=== PATIENT | male | born 1945 | race Hispanic/Latino ===

== ENCOUNTER 2019-05-06 17:49 | Emergency (ER) | payer MEDICARE ==
--- NOTE | 2019-05-06 18:34 | RAD ---
RIGHT WRIST THREE VIEWS: 05/06/19 INDICATION: Fall. COMPARISON: None. FINDINGS: There is a dorsally comminuted, dorsally angulated distal radius fracture. There is a small ulnar sty loid process fracture. No additional acute fracture is evident. There are Monckeberg calcifications w ithin the soft tissues. IMPRESSION: 1. Dorsally angulated distal radius fracture. 2. Ulnar styloid process fracture. POS: [facility]
== END 2019-05-06 19:43 | disposition home or self-care (01) ==
LOC: ERS 17:49
DX: S52.501A Unspecified fracture of the lower end of right radius, initial encounter for closed fracture (principal); S52.611A Displaced fracture of right ulna styloid process, initial encounter for closed fracture; W18.30XA Fall on same level, unspecified, initial encounter
CPT/HCPCS: 29125

== ENCOUNTER 2019-05-10 08:58 | Day surgery (SDC) | payer MEDICARE ==
[2019-05-10] MEDS ORDERED: Fentanyl 100 MCG/2 ML VIAL ONE (11:18)
[2019-05-10] MEDS ORDERED: Ketorolac Tromethamine 30 MG/ML VIAL ONE (11:20)
[2019-05-10] MEDS ORDERED: PROPOFOL 200 MG/20 ML VIAL ONE (11:20)
[2019-05-10] MEDS ORDERED: Ondansetron PF 4 MG/2 ML Vial ONE (11:20)
[2019-05-10] MEDS ORDERED: Lidocaine 1% PF 5 ML VIAL ONE (11:20)
--- NOTE | 2019-05-10 13:33 | OP ---
DATE OF PROCEDURE: 05/10/2019 OPERATION PERFORMED: Closed reduction and splinting of right distal radius fracture. PREOPERATIVE DIAGNOSIS: Right distal radius extra-articular fracture. POSTOPERATIVE DIAGNOSIS: Right distal radius extra-articular fracture. COMPLICATIONS: None. ESTIMATED BLOOD LOSS: Minimal. ANESTHESIA: General. IMPLANTS: None. INDICATIONS: Mr. Moss is a 73-year-old male who fell and fractured his distal radius. He was indicated for closed versus open reduction and internal fixation. Risks have been reviewed. He has elected to proceed with the operation. DESCRIPTION OF PROCEDURE: Mr. Moss was identified in the preoperative holding area. His correct extremity was marked. He was carried to the operating room. He was positioned supine. General anesthesia was induced. A multidisciplinary time-out was performed. The right upper extremity was evaluated with intraoperative x-ray. We identified the comminuted and displaced fracture. At this point, a fracture reduction maneuver was performed. With full traction and flexed the distal radius back into its anatomic position, we took x-ray images confirming this. There was anatomic alignment. We then placed a sugar-tong splint. This held the fracture in a good position. We took final images again after the splint was placed. There was preserved alignment. The patient was taken to the recovery room in good condition at this point. Job ID: [id number]
--- NOTE | 2019-05-10 16:29 | RAD ---
RIGHT WRIST THREE VIEW 05/10/19 HISTORY: Closed reduction right wrist. COMPARISON: Wrist radiographs 05/06/19. FINDINGS: Satisfactory appearance of the closed reduction of the right distal radius fracture. Small flake of t he ulnar styloid fracture is appreciated. IMPRESSION: Satisfactory appearance post reduction. POS: HOME
== END 2019-05-10 13:04 | disposition home or self-care (01) ==
LOC: SDC 08:58
PROVIDERS: ATTEND Orthopaedic Surgery
PROC: 0PSHXZZ Reposition Right Radius, External Approach (ICD-10-PCS; principal; 2019-05-10)
DX: S52.551A Other extraarticular fracture of lower end of right radius, initial encounter for closed fracture (principal); S52.611A Displaced fracture of right ulna styloid process, initial encounter for closed fracture; E78.00 Pure hypercholesterolemia, unspecified; W19.XXXA Unspecified fall, initial encounter
CPT/HCPCS: 76000; J0690; J1885; J2001; J2405; J2704; J3010

== ENCOUNTER 2025-06-28 08:31 | Outpatient (CLI) | payer MEDICARE | END 2025-06-28 08:32 | disposition home or self-care (01) | LOC: SCSMRI 08:31 | PROVIDERS: ATTEND Urology | DX: R97.20 Elevated prostate specific antigen [PSA] (principal) | CPT/HCPCS: 72197 ==